=== PATIENT | male | born 1985 | race Caucasian/White ===

== ENCOUNTER 2018-04-03 09:12 | Emergency (ER) | payer OTHER ==
--- NOTE | 2018-04-03 09:50 | EDM.PDOC ---
ED HPI GENERAL MEDICAL PROBLEM - General Chief Complaint: Abdominal Pain Stated Complaint: PAIN IN GROIN Time Seen by Provider: 04/03/18 09:30 - History of Present Illness INITIAL COMMENTS - FREE TEXT/NARRATIVE: HISTORY AND PHYSICAL: History of present illness: Patient's a 32-year-old white male presents with concern of right groin pain he states at times he felt a little bit of fullness in his right groin he denies nausea vomiting or other concerns are been no trauma he denies complaints in the form of testicular pain urethral discharge any genital lesions or other concern. Review of systems: As per history of present illness and below otherwise all systems reviewed and negative. Past medical history: As per history of present illness and as reviewed below otherwise noncontributory. Surgical history: As per history of present illness and as reviewed below otherwise noncontributory. Social history: No reported history of drug or alcohol abuse. Family history: As per history of present illness and as reviewed below otherwise noncontributory. Physical exam: HEENT: Atraumatic, normocephalic, pupils reactive, negative for conjunctival pallor or scleral icterus, mucous membranes moist, throat clear, neck supple, nontender, trachea midline. Lungs: Clear to auscultation, breath sounds equal bilaterally, chest nontender. Heart: S1S2, regular, negative for clicks, rubs, or JVD. Abdomen: Soft, nondistended, nontender. Negative for masses or hepatosplenomegaly. Negative for costovertebral tenderness. Pelvis: Stable nontender. Genitourinary: No obvious hernia appreciated E Abhishek some mild tenderness to palpation in his right inguinal area but no obvious hernia defect Rectal: Deferred. Extremities: Atraumatic, negative for cords or calf pain. Neurovascular unremarkable. Neuro: Awake, alert, oriented. Cranial nerves II through XII unremarkable. Cerebellum unremarkable. Motor and sensory unremarkable throughout. Exam nonfocal. Diagnostics: None Therapeutics: None Impression: #1 right groin pain Definitive disposition and diagnosis as appropriate pending reevaluation and review of above. - Related Data Allergies Allergy/AdvReac Type Severity Reaction Status Date / Time No Known Allergies Allergy Verified 04/03/18 09:39 Home Meds: Home Meds Lisinopril 10 mg PO DAILY 04/03/18 [History] Past Medical History Cardiovascular History: Reports: Other (See Below) Other Cardiovascular History: cardiomegaly Social & Family History - Family History Family Medical History: Noncontributory - Tobacco Use Smoking Status *Q: Never Smoker - Recreational Drug Use Recreational Drug Use: No ED ROS GENERAL - Review of Systems Review Of Systems: ROS reveals no pertinent complaints other than HPI. ED EXAM, GENERAL - Physical Exam Exam: See Below (dictation) Course - Vital Signs Last Recorded V/S: Last Vital Signs Temp 36.3 C 04/03/18 09:32 Pulse 77 04/03/18 09:32 Resp 18 04/03/18 09:32 BP 126/87 04/03/18 09:32 Pulse Ox 99 04/03/18 09:32 Departure - Departure Time of Disposition: 09:49 Disposition: Home, Self-Care 01 Condition: Good Clinical Impression: Groin pain - Discharge Information Referrals: PCP,Unknown [Primary Care Provider] - Additional Instructions: The following information is given to patients seen in the emergency department who are being discharged to home. This information is to outline your options for follow-up care. We provide all patients seen in our emergency department with a follow-up referral. The need for follow-up, as well as the timing and circumstances, are variable depending upon the specifics of your emergency department visit. If you don't have a primary care physician on staff, we will provide you with a referral. We always advise you to contact your personal physician following an emergency department visit to inform them of the circumstance of the visit and for follow-up with them and/or the need for any referrals to a consulting specialist. The emergency department will also refer you to a specialist when appropriate. This referral assures that you have the opportunity for followup care with a specialist. All of these measure are taken in an effort to provide you with optimal care, which includes your followup. Under all circumstances we always encourage you to contact your private physician who remains a resource for coordinating your care. When calling for followup care, please make the office aware that this follow-up is from your recent emergency room visit. If for any reason you are refused follow-up, please contact the [facility] emergency department at and asked to speak to the emergency department charge nurse. [facility] Specialty Care - General Surgery Professional Building [address] [place] [address], [address] [place] [address] Call schedule routine appointment above with general surgery athletic supporter as discussed exercise weight/work restrictions as discussed return as needed as discussed
== END 2018-04-03 10:15 | disposition home or self-care (01) ==
LOC: MW.ED 09:12
DX: R10.31 Right lower quadrant pain (principal); Z79.899 Other long term (current) drug therapy
CPT/HCPCS: 99282